=== PATIENT | male | born 2000 | race Caucasian/White ===

== ENCOUNTER 2019-04-14 09:47 | Emergency (ER) | payer OTHER ==
[2019-04-14 10:51] VITALS: BP 128/54
--- NOTE | 2019-04-14 11:58 | UC ---
Skin Complaint HPI - HPI Summary HPI Summary: 19-year-old male who noticed that he had red sores on his penis today. Last sexual intercourse was 2 weeks ago without the use of condoms. He has had no sexually transmitted disease history, he did do an HIV test approximately 2 weeks ago that was negative. - History of Current Complaint Chief Complaint: UCGU Time Seen by Provider: 04/14/19 11:42 Stated Complaint: PERSONAL Hx Obtained From: Patient Onset/Duration: Gradual Onset Skin Exposure Onset/Duration: Hours Ago Timing: Constant Onset Severity: Mild Current Severity: Mild Pain Intensity: 0 Location: Other - Penis Character: Redness - The sores themselves are red but the penis is normal color. , Raised, Painful Aggravating Factor(s): Touch Alleviating Factor(s): Nothing Associated Signs & Symptoms: Positive: Tenderness. Negative: Drainage - Allergy/Home Medications Allergies/Adverse Reactions: Allergies Allergy/AdvReac Type Severity Reaction Status Date / Time No Known Allergies Allergy Verified 04/14/19 10:51 Home Medications: Home Medications NK [No Home Medications Reported] 04/14/19 [History Confirmed 04/14/19] PMH/Surg Hx/FS Hx/Imm Hx Previously Healthy: Yes - Surgical History Surgical History: None - Family History Known Family History: Positive: Non-Contributory - Social History Occupation: Student Lives: Dormitory/Roommates Alcohol Use: Occasionally Substance Use Type: Marijuana Smoking Status (MU): Never Smoked Tobacco Review of Systems All Other Systems Reviewed And Are Negative: Yes Skin: Positive: Other - Patient has 3 reddened sores on the penis. Is Patient Immunocompromised?: No Physical Exam Triage Information Reviewed: Yes Appearance: Well-Appearing, No Pain Distress, Well-Nourished Vital Signs: Initial Vital Signs Temp 98.1 F 04/14/19 10:46 Pulse 65 04/14/19 10:46 Resp 16 04/14/19 10:46 BP 128/54 04/14/19 10:46 Pulse Ox 100 04/14/19 10:46 Skin: Positive: Other - I visualized the penis with a user experience analyst in the room. Patient has 3 red sores one on the shaft of the penis which is herpetic- appearing and one near the glans which is herpetic appearing and then 1 underneath the glans which is only red. The patient is uncircumcised. Course/Dx - Course Course Of Treatment: The urine will be sent for gonorrhea and chlamydia, a culture of the sores was done for herpes, a blood test for syphilis was obtained. We will call the patient with results. The patient was given information on safe sex and sexually transmitted diseases. He was advised no sex while he has the sores and to always use condoms for sexual intercourse because he can still be contagious even though he does not have active sores. - Diagnoses Provider Diagnosis: Penile rash Discharge ED - Sign-Out/Discharge Documenting (check all that apply): Patient Departure All imaging exams completed and their final reports reviewed: No Studies - Discharge Plan Condition: Good Disposition: HOME Patient Education Materials: Safe Sex (ED), Sexually Transmitted Diseases (ED) Referrals: No Primary Care Phys,NOPCP [Primary Care Provider] - RHIANONN HINOJOSA [[employer], APPLICATION, OTHER] - [facility] [Outside] Additional Instructions: Always practice safe sex using condoms, do not have any sex while you have sores and your penis, follow-up either at the [facility] or [facility] reproductive health for further care. We will call you if any of the reports come back positive. - Billing Disposition and Condition Condition: GOOD Disposition: Home
[2019-04-16 14:07] LABS: RPR Nonreactive (Nonreactive)
--- NOTE | 2019-04-16 19:54 | UC ---
- Progress Note Progress Note: Positive IgG but negative RPR indicates previous infection. If no previous treatment would recommend treatment. Recommend evaluation at the [facility] for further evaluation for possible latent syphilis. Course/Dx - Diagnoses Provider Diagnoses: Penile rash Discharge ED - Sign-Out/Discharge Documenting (check all that apply): Patient Departure All imaging exams completed and their final reports reviewed: No Studies - Discharge Plan Condition: Good Disposition: HOME Patient Education Materials: Sexually Transmitted Diseases (ED), Safe Sex (ED) Referrals: [facility] [Outside] No Primary Care Phys,NOPCP [Primary Care Provider] - RHIANNON HINOJOSA [[employer], APPLICATION, OTHER] - Additional Instructions: Always practice safe sex using condoms, do not have any sex while you have sores and your penis, follow-up either at the [facility] or [facility] reproductive health for further care. We will call you if any of the reports come back positive. - Billing Disposition and Condition Condition: GOOD Disposition: Home
[2019-04-17 13:55] LABS: Chlamydia trachomatis NAA Negative (Negative); Neisseria gonorrhoeae (GC) NAA Negative (Negative)
[2019-04-18 00:45] LABS: Herpes Source SORES ON PENIS
--- NOTE | 2019-04-18 07:27 | UC ---
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 1000 mg bid x 7 days Course/Dx - Diagnoses Provider Diagnoses: Penile rash Discharge ED - Sign-Out/Discharge Documenting (check all that apply): Patient Departure All imaging exams completed and their final reports reviewed: No Studies - Discharge Plan Condition: Good Disposition: HOME Prescriptions: ValACYclovir (*) [Valtrex 1 GM(*)] 1 gm PO BID #14 tab Patient Education Materials: Sexually Transmitted Diseases (ED), Safe Sex (ED) Referrals: [facility] [Outside] No Primary Care Phys,NOPCP [Primary Care Provider] - RHIANNON HINOJOSA [[employer], APPLICATION, OTHER] - Additional Instructions: Always practice safe sex using condoms, do not have any sex while you have sores and your penis, follow-up either at the [facility] or [facility] reproductive health for further care. We will call you if any of the reports come back positive. - Billing Disposition and Condition Condition: GOOD Disposition: Home
[2019-04-19 16:50] LABS: T.Pallidum TP-PA Negative (Negative)
== END 2019-04-14 12:18 | disposition home or self-care (01) ==
LOC: UCCORT 09:47
DX: N48.89 Other specified disorders of penis (principal)
CPT/HCPCS: 36415; 86592; 86780; 87491; 87529; 87591; 99201; G0463